=== PATIENT | male | born 1940 | race Caucasian/White ===

== ENCOUNTER 2021-01-24 13:35 | Outpatient (REF) | payer MEDICARE, BC, SELFPAY ==
[2021-01-29 20:30] LABS: Acetylcholine Recept. Blocking <15 (<15)
[2021-01-30 19:40] LABS: Acetylcholine Receptor Binding <0.30 nmol/L
[2021-01-30 23:41] LABS: Acetylcholine Recep Modulating 13
== END 2021-01-24 13:36 | disposition home or self-care (01) ==
LOC: HO.LAB 13:35
PROVIDERS: PCP Pediatrics; Visit Provider Psychiatry & Neurology Neurology
DX: R47.1 Dysarthria and anarthria (principal)
CPT/HCPCS: 36415; 82550; 83519

== ENCOUNTER 2021-02-12 09:33 | Day surgery (SDC) | payer MEDICARE, BC, SELFPAY ==
--- NOTE | ~2021-02-12 | FL_ITS ---
PROCEDURE: XR LUMBAR PUNCTURE CLINICAL INFORMATION: [place] disease. COMPARISON: None TECHNIQUE: Following explaining fluoroscopy-guided lumbar puncture procedure, benefits and risk, a written consent was obtained. Patient was placed prone on fluoroscopy table and preliminary imaging was obtained through the lumbar spine. An optimal site was selected along the right L3-L4 disc level and marked on the skin. The marked site was cleaned and draped in usual sterile manner. 1% lidocaine was injected at puncture site. A 22-gauge spinal needle was then advanced from the skin intrathecally in the right paramidline region. After observing CSF returned, patient was quickly placed in left lateral decubitus view and opening CSF pressure was obtained. Subsequently clear CSF fluid was collected in 4 test tubes. Postprocedure stylet was reintroduced and the needle withdrawn. Complete hemostasis was achieved at puncture site. Sterile Band-Aid applied postprocedure. Oral valsartan 160 mg was administered prior to exam due to elevated blood pressure. FINDINGS: The opening CSF pressure measures 14 cm of water. Approximately 9 mL of clear CSF fluid was collected in 4 test tubes and sent to lab as per referring physician's orders. FLUOROSCOPY TIME: 0.6 minutes. DOSE AREA PRODUCT: 4.501 uGy-m2 (microgray-meter squared). FL/FL guided lumbar puncture LP IMPRESSION: Successful fluoroscopy-guided lumbar puncture performed at the L3-L4 disc level.
[2021-02-12 10:02] VITALS: BMI 31.0
[2021-02-12 10:10] LABS: MANUAL DIFF FLAG NO
[2021-02-12 10:13] LABS: Basophils Percent Auto 0.6 % (0-2); Eosinophils Absolute Auto 0.1 X10*3/uL (0.0-0.4); Eosinophils Percent Auto 2.1 % (0-4); Hematocrit 31.8 % (42-52); Hemoglobin 11.2 g/dl (14.0-18.0); Imm Gran Abs Auto 0.01 X10*3/uL (0.00-0.03); Imm Gran Pct Auto 0.2 % (0.0-0.4); Lymphocytes Absolute Auto 1.9 X10*3/uL (1.2-4.9); Lymphocytes Percent Auto 40.4 % (20-40); Mean Corpuscular HGB Conc 35.2 g/dl (31.0-36.0); Mean Corpuscular Hemoglobin 30.5 pg (27.0-33.0); Mean Corpuscular Volume 86.6 fL (80-98); Mean Platelet Volume 8.9 fL (9.4-12.4); Monocytes Absolute Auto 0.4 X10*3/uL (0.1-1.2); Monocytes Percent Auto 8.1 % (2-11); Neutrophils Absolute Auto 2.3 X10*3/uL (2.0-8.3); Neutrophils Percent Auto 48.6 % (45-73); Platelet Count 235 X10*3/uL (160-400); Red Blood Count 3.67 X10*6/uL (4.60-5.80); Red Cell Distribution Width 12.8 % (11.0-16.0); White Blood Count 4.7 X10*3/uL (4.8-10.8)
[2021-02-12 10:20] LABS: Prothrombin Time 11.3 SEC (9.9-13.0)
[2021-02-12 10:22] LABS: Partial Thromboplastin Time 38.8 SEC (24.1-38.0)
--- NOTE | 2021-02-12 10:24 | PC.NURSE ---
SPOKE TO MD CORREA AND IS AWARE THAT PATIENT ATE BREAKFAST AT 8AM-OATMEAL. PROCEDURE TO BE DELAYED UNTIL 1130AM. PATIENT AWARE.
[2021-02-12 11:02] LABS: Glucose, Whole Blood 140 mg/dL (60-115)
--- NOTE | 2021-02-12 11:38 | PC.NURSE ---
MOISES CALLED BACK AND WAS UNSURE OF WHAT MEDS HE TOOK THIS MORNING BUT SHE KNOWS HE DIDNT TAKE HIS ASPIRIN THIS MORNING.
--- NOTE | 2021-02-12 11:56 | PC.NURSE ---
MD OCRREA AWARE OF PATIENTS HTN. TO ORDER PO MEDICATION. PATIENT ON OLMESA BUT PHARMACY DOES NOT CARRY
--- NOTE | 2021-02-12 11:58 | PC.NURSE ---
OLMESA TO BE CHANGED TO VALSARTAN PER PHARMACY. MD CORREA AWARE. SPOKE TO MOISES AND VERIFIED MEDS BUT UNSURE WHAT HE TOOK THIS MORNING.
[2021-02-12 12:45] VITALS: BP 198/78; PULSE 70; RESP 18; TEMP 37.2; O2SAT 95
[2021-02-12 13:15] VITALS: BP 177/75; PULSE 68; RESP 18; O2SAT 94
[2021-02-12 13:54] LABS: CSF Appearance Clear, Colorless
[2021-02-12 13:55] LABS: CSF Tube # 1
[2021-02-12 13:58] LABS: Glucose CSF 69 mg/dL; Total Protein CSF 43.5 mg/dL (15-45)
[2021-02-12 14:15] VITALS: BP 164/70; PULSE 75; RESP 18; O2SAT 95
[2021-02-12 14:55] VITALS: BP 146/74; PULSE 70; RESP 20; O2SAT 95
[2021-02-12 15:23] LABS: Appearance CSF CLEAR; CSF Tube # 4; CSF Volume 2.5 ML; Color CSF COLORLESS; Red Blood Cell CSF 0 MM*3; White Blood Cell CSF 2 MM*3
[2021-02-12 15:25] LABS: CSF Other Cells % 53 %; Lymphocytes CSF 47 %; Neutrophils CSF 0 %
[2021-02-13 06:44] LABS: Oligoclonal Serum Yes
[2021-03-02 15:30] LABS: Albumin, CSF 20.1 mg/dL (8.0-42.0); IgG, CSF 6.7 mg/dL (0.8-7.7)
== END 2021-02-12 15:07 | disposition home or self-care (01) ==
PROVIDERS: Psychiatry & Neurology Neurology; PCP Pediatrics; Visit Provider Radiology Diagnostic Radiology
PROC: 009U3ZZ Drainage of Spinal Canal, Percutaneous Approach (ICD-10-PCS; CPT 62270; principal; 2021-02-12 11:00)
DX: G12.20 Motor neuron disease, unspecified (principal); I10 Essential (primary) hypertension; I12.9 Hypertensive chronic kidney disease with stage 1 through stage 4 chronic kidney disease, or unspecified chronic kidney disease; E11.22 Type 2 diabetes mellitus with diabetic chronic kidney disease; N18.9 Chronic kidney disease, unspecified; Z79.02 Long term (current) use of antithrombotics/antiplatelets; Z79.4 Long term (current) use of insulin; Z79.899 Other long term (current) drug therapy
CPT/HCPCS: 36415; 62328; 82042; 82945; 82947; 83916; 84157; 85025; 85610; 85730; 87015; 87070; 87205; 89051